=== PATIENT | male | born 1995 | race Caucasian/White ===

== ENCOUNTER 2017-05-17 22:48 | Emergency (ER) | payer BC, OTHER ==
[~2017-05-17] VITALS: Ht 162.6 cm; Wt 65.9 kg
[2017-05-17 22:54] VITALS: Ht 162.6 cm; Wt 65.9 kg
[2017-05-17] MEDS ORDERED: ONDANSETRON 4 MG INJ IV STA (23:23)
[2017-05-17] MEDS ORDERED: SOD CHLORIDE 0.9% 1,000 ML IV STA (23:23)
[2017-05-17] MEDS ORDERED: morphine 2 MG INJ IV ONE (23:30)
--- NOTE | 2017-05-18 00:25 | RADRPT ---
PROCEDURE: CT Brain without contrast. CLINICAL INDICATION: Headache, weakness. TECHNIQUE: A CT of the brain was performed utilizing axial sections from the skull base through th e vertex without contrast. Multiplanar re-formations were generated. DICOM images are available. Amanda ges were reviewed on a high-resolution PACS workstation. CTDIvol: 44.68 mGy. DLP: 720.23 mGy-cm. One or more of the following dose reduction techniques were used: - Automated exposure control. - Adjustment of the mA and/or kV according to patient size. - Use of iterative reconstruction technique. COMPARISON: None available FINDINGS: There is no cerebral volume loss. No hydrocephalus is seen. There is no mass effect. No acute intrac ranial hemorrhage is identified. There is no extra-axial collection. Tapia-white matter differentiati on is preserved. There is a retention cyst in the right maxillary sinus. The visualized mastoid air cells are clear. The ossesous structures are unremarkable. The extracranial soft tissues are unremarkable. IMPRESSION: 1. No acute intracranial pathology. RPTAT: HTAR .Jose Luis Phelps MD, MD Date Time Electronically viewed and signed by .Jose Luis Phelps MD, on 05/18/2017 00:24 .R/
[2017-05-18 00:31] LABS: BASOPHIL # 0.1 10^3/ul (0.0-0.1); BASOPHILS % 0.6 % (0.0-2.0); EOSINOPHILS % 0.4 % (0.0-7.0); HEMATOCRIT 46.1 % (42.0-52.0); HEMOGLOBIN 15.8 g/dl (14.0-18.0); LYMPHOCYTES # 1.6 10^3/ul (0.8-2.9); LYMPHOCYTES % 15.8 % (15.0-51.0); MEAN CORPUSCULAR HGB CONC 34.3 g/dl (32.0-37.0); MEAN CORPUSCULAR VOLUME 84.7 fl (82.0-101.0); MEAN PLATELET VOLUME 9.9 fl (7.4-10.4); MONOCYTE # 0.6 10^3/ul (0.3-0.9); MONOCYTES % 5.3 % (0.0-11.0); NEUTROPHILS % 77.3 % (39.0-77.0); PLATELET COUNT 272 10^3/UL (140-415); RED BLOOD COUNT 5.44 10^6/ul (4.70-6.10); RED CELL DISTRIBUTION WIDTH 12.2 % (11.5-14.5); WHITE BLOOD COUNT 10.4 10^3/ul (4.8-10.8)
[2017-05-18 00:42] LABS: ADD UMIC YES; UR AMORPHOUS CRYSTAL MODERATE /HPF (NONE SEEN); UR ASCORBIC ACID NEGATIVE (NEGATIVE); UR BILIRUBIN (Dip) NEGATIVE (NEGATIVE); UR BLOOD (Dip) NEGATIVE (NEGATIVE); UR CLARITY CLOUDY (CLEAR); UR COLOR YELLOW (YELLOW); UR GLUCOSE (Dip) NEGATIVE (NEGATIVE); UR KETONES (Dip) NEGATIVE (NEGATIVE); UR LEUKOCYTE ESTERASE (Dip) NEGATIVE Leu/ul (NEGATIVE); UR MUCUS FEW /HPF (NONE SEEN); UR NITRITE (Dip) NEGATIVE (NEGATIVE); UR RBC 1 /HPF (0-5); UR SPECIFIC GRAVITY (Dip) 1.023 (1.003-1.030); UR TOTAL PROTEIN (Dip) NEGATIVE (NEGATIVE); UR UROBILINOGEN (Dip) 1+ mg/dL (NEGATIVE)
[2017-05-18 00:52] LABS: ALBUMIN 4.6 g/dl (3.3-4.9); ALBUMIN/GLOBULIN RATIO 1.39; BILIRUBIN,INDIRECT 0.3 mg/dl (0-1.1); BILIRUBIN,TOTAL 0.3 mg/dl (0.2-1.3); CREATININE 0.79 mg/dl (0.61-1.24); POTASSIUM 3.4 mmol/L (3.5-5.1); TOTAL PROTEIN 7.9 g/dl (6.1-8.1)
[2017-05-18] MEDS ORDERED: ONDA4TAB14 PO (01:37)
--- NOTE | 2017-05-18 01:37 | ERD ---
ER Documentation Chief Complaint Chief Complaint PT IN C/O "DIZZINESS, NAUSEA, WEAKNESS AND DONOVAN X 1-2 HOURS". HPI 21-year-old male complains of dizziness, nausea, weakness and headache that started after leaving a democrat today. He states that he had some cake and then developed the symptoms afterwards. Headache is occipital, achy, mild and gradual in onset. He has not had any vomiting. This is not the worst headache of his life and he denies head trauma. When asked specifically about recreational drug use the patient denies this. ROS All systems reviewed and are negative except as per history of present illness. Medications Home Meds Active Scripts Ondansetron (Ondansetron Odt) 4 Mg Tab.rapdis, 4 MG PO Q6H Y for NAUSEA AND/OR VOMITING, #10 TAB Prov:SEAN HERRERA PA-C 05/18/17 Allergies Allergies: Coded Allergies: No Known Drug Allergies (Verified Allergy, Mild, 03/19/11) PMhx/Soc Medical and Surgical Hx: pt denies Medical Hx, pt denies Surgical Hx History of Surgery: No Anesthesia Reaction: No Hx Neurological Disorder: No Hx Respiratory Disorders: No Hx Cardiac Disorders: No Hx Psychiatric Problems: No Hx Miscellaneous Medical Probl: No Hx Alcohol Use: No Hx Substance Use: No Hx Tobacco Use: No Smoking Status: Never smoker Physical Exam Vitals Vital Signs Date Time Temp Pulse Resp B/P Pulse Ox O2 Delivery O2 Flow Rate FiO2 05/17/17 22:54 97.2 94 20 122/83 100 Physical Exam General: Well-developed, well-nourished. The patient appears in no acute distress. HEENT: Head is normocephalic, atraumatic. No scleral icterus. Pupils are equal , round, and reactive. Neck: Supple. Nontender. Lungs: Clear to auscultation. Normal air movement. Heart: Regular rate and rhythm. S1 and S2 are normal. No murmurs, gallops, or rubs. Abdomen: Soft, nontender, nondistended. Bowel sounds are normoactive. Extremities: No clubbing or cyanosis. Normal pulses. Moving extremities x 4. No weakness. Neuro: M/S: Alert and oriented Face: EOMI, CN II-XII grossly intact Motor: Normal strength throughout Sensation: Normal sensation throughout Speech: Normal Cerebel: Normal coordination Normal gait Normal finger to nose DTR: 2+ and symmetric upper/lower extremities Skin: Normal turgor. No rash or lesions. Result Diagram: 05/17/17 0000 05/17/17 0000 Results 24 hrs Laboratory Tests Test 05/17/17 00:00 05/17/17 23:50 White Blood Count 10.410^3/ul Red Blood Count 5.4410^6/ul Hemoglobin 15.8g/dl Hematocrit 46.1% Mean Corpuscular Volume 84.7fl Mean Corpuscular Hemoglobin 29.0pg Mean Corpuscular Hemoglobin Concent 34.3g/dl Red Cell Distribution Width 12.2% Platelet Count 08077^3/UL Mean Platelet Volume 9.9fl Neutrophils % 77.3% Lymphocytes % 15.8% Monocytes % 5.3% Eosinophils % 0.4% Basophils % 0.6% Nucleated Red Blood Cells % 0.0/100WBC Neutrophils # 8.010^3/ul Lymphocytes # 1.610^3/ul Monocytes # 0.610^3/ul Eosinophils # 0.010^3/ul Basophils # 0.110^3/ul Nucleated Red Blood Cells # 0.010^3/ul Sodium Level 143mmol/L Potassium Level 3.4mmol/L Chloride Level 105mmol/L Carbon Dioxide Level 27mmol/L Anion Gap 14 Blood Urea Nitrogen 10mg/dl Creatinine 0.79mg/dl Glucose Level 114mg/dl Calcium Level 9.0mg/dl Total Bilirubin 0.3mg/dl Direct Bilirubin 0.00mg/dl Indirect Bilirubin 0.3mg/dl Aspartate Amino Transf (AST/SGOT) 21IU/L Alanine Aminotransferase (ALT/SGPT) 25IU/L Alkaline Phosphatase 93IU/L Total Protein 7.9g/dl Albumin 4.6g/dl Globulin 3.30g/dl Albumin/Globulin Ratio 1.39 Urine Color YELLOW Urine Clarity CLOUDY Urine pH 6.0 Urine Specific [place] 1.023 Urine Ketones NEGATIVEmg/dL Urine Nitrite NEGATIVEmg/dL Urine Bilirubin NEGATIVEmg/dL Urine Urobilinogen 1+mg/dL Urine Leukocyte Esterase NEGATIVELeu/ul Urine Microscopic RBC 1/HPF Urine Microscopic WBC 2/HPF Urine Amorphous Crystals MODERATE/HPF Urine Mucus FEW/HPF Urine Hemoglobin NEGATIVEmg/dL Urine Glucose NEGATIVEmg/dL Urine Total Protein NEGATIVEmg/dl Current Medications Medications (Trade) Dose Ordered Sig/Eryn Route PRN Reason Start Time Stop Time Status Last Admin Dose Admin Sodium Chloride (NS) 1,000 ml @ 1,000 mls/hr Q1H STAT IV 05/17/17 23:23 05/18/17 00:22 DC 05/18/17 00:08 Morphine Sulfate (morphine) 2 mg ONCE ONCE IV 05/17/17 23:30 05/18/17 00:08 DC Ondansetron HCl (Zofran Inj) 4 mg ONCE STAT IV 05/17/17 23:23 05/17/17 23:27 DC 05/18/17 00:08 12-lead EKG(interpreted by supervising physician): Dr. Olguin Rate/Rhythm: Normal Sinus Rhythm, rate of 93 QRS, ST, T-waves: No changes consistent w/ acute ischemia, no intervals, no dysrhythmias, no ectopy Impression: No evidence of ischemia or arrhythmia DIAGNOSTIC IMAGING REPORT Patient: ARI LORD : 1995 Age: 21 Sex: M MR #: [id number] DOS: 05/17/17 2323 Ordering MD: SEAN HERRERA PA-C Location: [facility] Room/Bed: PROCEDURE: CT Brain without contrast. CLINICAL INDICATION: Headache, weakness. TECHNIQUE: A CT of the brain was performed utilizing axial sections from the skull base through the vertex without contrast. Multiplanar re-formations were generated. DICOM images are available. Images were reviewed on a high- resolution PACS workstation. CTDIvol: 44.68 mGy. DLP: 720.23 mGy-cm. One or more of the following dose reduction techniques were used: - Automated exposure control. - Adjustment of the mA and/or kV according to patient size. - Use of iterative reconstruction technique. COMPARISON: None available FINDINGS: There is no cerebral volume loss. No hydrocephalus is seen. There is no mass effect. No acute intracranial hemorrhage is identified. There is no extra-axial collection. Tapia-white matter differentiation is preserved. There is a retention cyst in the right maxillary sinus. The visualized mastoid air cells are clear. The ossesous structures are unremarkable. The extracranial soft tissues are unremarkable. IMPRESSION: 1. No acute intracranial pathology. RPTAT: HTAR .Jose Luis Phelps MD, Date Time Electronically viewed and signed by .Jose Luis Phelps MD, on 05/18/2017 00:24 .R/ CC: SEAN HERRERA PA-C Procedures/CASEY Dawson decision makin-year-old male presents emergency department headache , dizziness, nausea and weakness after leaving a democrat, he states that he specifically ate cake and felt sick after leaving the democrat. This is not the worst headache of his life his neurologic examination is normal. His normal strength, without any focal changes. Suspicion for meningitis, encephalitis, transverse myelitis, subarachnoid hemorrhage, AV malformation, other intracranial hemorrhage is low. She he had a CT scan is normal, and labs are unremarkable. The patient was given fluids in the emergency department, was observed and discharged home after he was feeling better. The case was reviewed and discussed with Dr. Knapp who agrees with the plan of care including labs, treatment, and advanced imaging as appropriate. Departure Diagnosis: Primary Impression: Dizziness Condition: Good SEAN HERRERA PA-C May 18, 2017 01:37
[2017-05-18] MEDS ORDERED: SOD CHLORIDE 0.9% 1,000 ML IV ONE (02:00)
[2017-05-18 04:24] LABS: BARBITURATES NEGATIVE (NEGATIVE); BENZODIAZEPINES NEGATIVE (NEGATIVE); CANNABINOIDS POSITIVE (NEGATIVE); COCAINE NEGATIVE (NEGATIVE); OPIATES NEGATIVE (NEGATIVE)
--- NOTE | 2017-05-18 04:31 | EN ---
Date/Time of Note Date/Time of Note DATE: 05/18/17 TIME: 04:30 ER Progress Note Patient was signed out to me pending a urine drug test. Patient's urine was tested positive for cannabinoid use. It is likely that the patient ate cake which was laced with marijuana and contributed to his symptoms. Patient felt improved prior to discharge. DISCHARGE: At this time, patient is stable for discharge and outpatient management. I have instructed the patient to follow-up with his/her primary care physician in 1-2 days. I have discussed with the patient the possibility of needing to see a specialist for further workup and imaging studies if symptoms persist. I have instructed the patient to promptly return to the ER for any new or worsening symptoms including increased pain, fever, nausea, vomiting, weakness or LOC. The patient and/or family expressed understanding of and agreement with this plan. All questions were answered. Home care instructions were provided. VEE KOHLER PA-C May 18, 2017 04:31
[2017-05-18 04:42] VITALS: BP 115/65; PULSE 64; RESP 16; TEMP 98.3
== END 2017-05-18 04:43 | disposition home or self-care (01) ==
LOC: FTE 22:48
DX: R42 Dizziness and giddiness (principal)
CPT/HCPCS: 36415; 70450; 80053; 80307; 81001; 85025; 93005; 96374; J2405; J7030; Z7502; J2270

== ENCOUNTER 2019-01-20 19:08 | Emergency (ER) | payer OTHER ==
[~2019-01-20] VITALS: Ht 167.6 cm; Wt 69.7 kg
[~2019-01-20 19:08] MED LIST: DOXY100T20 PO; IBUP-1542 PO; ONDA4TAB14 PO
[2019-01-20 19:44] VITALS: Ht 167.6 cm; Wt 69.7 kg
[2019-01-20] MEDS ORDERED: IBUPROFEN 600 MG TAB PO ONE (20:30)
[2019-01-20 22:10] VITALS: BP 130/84; PULSE 62; RESP 18
--- NOTE | 2019-01-21 04:37 | ERD ---
ER Documentation Chief Complaint Chief Complaint left testicular pain x 1 week, states getting worse HPI 23-year-old male presents to the emergency department complaining of bilateral testicular pain which is worse on the left intimately for the past 1 week. He reports a pressure sensation which is constant, 8/10 in severity. He has had some mild burning on urination. He is a virgin, never sexually active in the past. He denies any abdominal pain, fevers, nausea, vomiting, diarrhea, or other symptoms at this time. ROS All systems reviewed and are negative except as per history of present illness. Medications Home Meds Active Scripts Ibuprofen* (Motrin*) 600 Mg Tab, 600 MG PO Q6, #30 TAB Prov:MARTHA DOAN PA-C 01/20/19 Doxycycline Hyclate* (Doxycycline Hyclate*) 100 Mg Tablet.dr, 100 MG PO BID for 10 Days, TAB Prov:MARTHA DOAN PA-C 01/20/19 Ondansetron (Ondansetron Odt) 4 Mg Tab.rapdis, 4 MG PO Q6H PRN for NAUSEA AND/OR VOMITING, #10 TAB Prov:SEAN HERRERA PA-C 05/18/17 Allergies Allergies: Coded Allergies: No Known Drug Allergies (Verified Allergy, Mild, 03/19/11) PMhx/Soc Medical and Surgical Hx: pt denies Medical Hx History of Surgery: No Anesthesia Reaction: No Hx Neurological Disorder: No Hx Respiratory Disorders: No Hx Cardiac Disorders: No Hx Psychiatric Problems: No Hx Miscellaneous Medical Probl: No Hx Alcohol Use: No Hx Substance Use: No Hx Tobacco Use: No Smoking Status: Never smoker FmHx Family History: No diabetes Physical Exam Vitals Vital Signs Date Temp Pulse Resp B/P (MAP) Pulse Ox O2 O2 Flow FiO2 Time Delivery Rate 01/20/19 98.3 62 18 130/84 97 22:10 (99) 01/20/19 98.0 81 18 133/86 98 19:44 (102) Physical Exam Const: No acute distress Head: Atraumatic Eyes: Normal Conjunctiva ENT: Normal External Ears, Nose and Mouth. Neck: Full range of motion. No meningismus. Resp: Clear to auscultation bilaterally Cardio: Regular rate and rhythm, no murmurs Abd: Soft, non tender, non distended. Normal bowel sounds Skin: No petechiae or rashes Exam: Scrotum: Localized erythema noted to the left testicle with central pustule. There is no necrosis. Hernia: None Testes/Epid: Non-tender w/ normal lie Cremaster: Reflex intact Lymph: No inguinal lymphadenopathy Discharge: None Back: No midline or flank tenderness Ext: No cyanosis, or edema Neur: Awake and alert Psych: Normal Mood and Affect Results 24 hrs Laboratory Tests Test 01/20/19 20:19 Urine Color YELLOW Urine Clarity CLEAR Urine pH 6.0 Urine Specific [place] 1.013 Urine Ketones NEGATIVE mg/dL Urine Nitrite NEGATIVE mg/dL Urine Bilirubin NEGATIVE mg/dL Urine Urobilinogen NEGATIVE mg/dL Urine Leukocyte Esterase NEGATIVE Esther/ul Urine Hemoglobin NEGATIVE mg/dL Urine Glucose 1+ mg/dL Urine Total Protein NEGATIVE mg/dl Current Medications Medications Dose Sig/Eryn Start Time Status Last (Trade) Ordered Route PRN Stop Time Admin Dose Reason Admin Ibuprofen 600 mg ONCE ONCE 01/20/19 DC 01/20/19 (Motrin) PO 20:30 20:15 01/20/19 20:31 [place] [id number] Rad[address] Main Line: [phone] DIAGNOSTIC IMAGING REPORT Patient: ARI LORD : 1995 Age: 23 Sex: M MR #: [id number] DOS: 01/20/19 0000 Ordering MD: MARTHA DOAN PA-C Location: [facility] Room/Bed: PROCEDURE: US Scrotum. CLINICAL INDICATION: Scrotal pain. TECHNIQUE: Multiple sonographic images of the scrotal region were obtained utilizing a linear array transducer with grayscale and color-flow and pulsed Doppler imaging. The images were reviewed on a high-resolution PACS workstation. COMPARISON: No prior studies are available for comparison. FINDINGS: The right testis measures 4.8 x 2.5 x 3.0 cm. The left testis measures 4.7 x 2.3 x 3.2 cm. There is no intratesticular mass. The epididymi are normal. There is normal flow to both testes demonstrated with color Doppler and pulsed Doppler sonography. There is no hydrocele. There is no right varicocele. There is a small left varicocele. The scrotal wall is unremarkable. IMPRESSION: 1. Small left varicocele. 2. Otherwise normal scrotal ultrasound. RPTAT: QQ .Jules Duarte MD, MD Date Time Electronically viewed and signed by .Jules Duarte MD, on 01/20/2019 21:18 .R/ CC: MARTHA DOAN PA-C [phone] Procedures/MDM 23-year-old male presents emergency department with signs and symptoms most consistent with scrotal cellulitis and varicocele of the left testicle. Patient is a virgin and I have low suspicion for sexually transmitted infection. No evidence of urinary tract infection. Patient can be safely discharged home at this time with a prescription for doxycycline and ibuprofen. He was advised to have 24 to 48-hour follow-up with urology and return here immediately for any new, worsening, concerning symptoms. He was in agreement with the diagnosis, plan, need for follow-up, return precautions. No evidence of testicular torsion, necrotizing fasciitis, UTI, STI, or other emergencies. Patient's blood pressure was elevated (>120/80) but appears stable without evidence of hypertension emergency or urgency. The patient is to follow-up and pursue outpatient monitoring and therapy with their primary care physician within 1 week and return immediately if they have any new, worsening, or concerning symptoms. Departure Diagnosis: Primary Impression: Cellulitis of scrotum Additional Impression: Testicular pain Condition: Fair Patient Instructions: Cellulitis Referrals: [facility] YOU HAVE RECEIVED A MEDICAL SCREENING EXAM AND THE RESULTS INDICATE THAT YOU DO NOT HAVE A CONDITION THAT REQUIRES URGENT TREATMENT IN THE EMERGENCY DEPARTMENT. FURTHER EVALUATION AND TREATMENT OF YOUR CONDITION CAN WAIT UNTIL YOU ARE SEEN IN YOUR DOCTORS OFFICE WITHIN THE NEXT 1-2 DAYS. IT IS YOUR RESPONSIBILITY TO MAKE AN APPOINTMENT FOR FOLOW-UP CARE. IF YOU HAVE A PRIMARY DOCTOR --you should call your primary doctor and schedule an appointment IF YOU DO NOT HAVE A PRIMARY DOCTOR YOU CAN CALL OUR PHYSICIAN REFERRAL HOTLINE AT IF YOU CAN NOT AFFORD TO SEE A PHYSICIAN YOU CAN CHOSE FROM THE FOLLOWING [facility] [address] [facility] [address] [facility] [place] [address] [facility] [address] [facility] [address] [facility] [facility] [address] Additional Instructions: Call your primary care doctor TOMORROW for an appointment during the next 1-2 days.See the doctor sooner or return here if your condition worsens before your appointment time. MARTHA DOAN PA-C Jan 21, 2019 04:37
== END 2019-01-20 22:11 | disposition home or self-care (01) ==
LOC: FTE 19:08
DX: N49.2 Inflammatory disorders of scrotum (principal)
CPT/HCPCS: 76870; 81003; 87591; Z7502; Z7610